=== PATIENT | male | born 1965 | race Caucasian/White ===

== ENCOUNTER → 2017-10-06 | Day surgery (SDC) | payer BC ==
[~2017-10-06] MED LIST: HYDROmorphone 2 MG/ML VIAL IV; LIDOCAINE 1% PF 2 ML VIAL. ID; MORPHINE SULFATE 2 MG/ML DISP.SYRIN. IV; ONDANSETRON PF 4 MG/2 ML VIAL. IV; PROCHLORPERAZINE 10 MG/2 ML VIAL. IV; PROPOFOL 20 ML IV; PROPOFOL 40 ML IV; fentaNYL PF VIAL 100 MCG/2 ML VIAL IV
[2017-10-06] MEDS: IV RINGERS,LACTATED 1000ML 1,000 ML IV (10:04)
[2017-10-06 10:07] LABS: POC GLUCOSE 249 mg/dL (70-99)
== END | disposition home or self-care (01) ==
LOC: SURG 09:26
DX: Z12.11 Encounter for screening for malignant neoplasm of colon (principal); D12.5 Benign neoplasm of sigmoid colon; E11.9 Type 2 diabetes mellitus without complications; F17.200 Nicotine dependence, unspecified, uncomplicated; Z86.39 Personal history of other endocrine, nutritional and metabolic disease
CPT/HCPCS: 45380; 82962; 88305; J2704